=== PATIENT | female | born 1950 | race Caucasian/White ===

== ENCOUNTER 2019-06-12 14:40 | Emergency (ER) | payer MEDICARE, MEDICAID ==
[~2019-06-12] VITALS: Ht 170.2 cm; Wt 118.2 kg
[2019-06-12 15:08] VITALS: BP 157/99
[2019-06-12] MEDS ORDERED: PANT40TA4 PO (16:56)
[2019-06-12] MEDS ORDERED: LEVO112T5 PO ×2 (16:56→17:17)
[2019-06-12] MEDS ORDERED: ALBUTEROL HFA INH (16:56)
[2019-06-12] MEDS ORDERED: LOSA1TAB36 PO ×2 (16:56→17:17)
[2019-06-12] MEDS ORDERED: BUDE10.2 INH ×2 (16:56→17:17)
[2019-06-12] MEDS ORDERED: MONT10TA24 PO (16:56)
[2019-06-12] MEDS ORDERED: MONT10TA21 PO (17:17)
[2019-06-12] MEDS ORDERED: ALBU8HFA PO (17:17)
[2019-06-12] MEDS ORDERED: PANT-47 PO (17:17)
== END 2019-06-12 17:28 | disposition home or self-care (01) ==
LOC: ER 14:41
DX: I10 Essential (primary) hypertension (principal); J45.909 Unspecified asthma, uncomplicated; E03.9 Hypothyroidism, unspecified; Z76.0 Encounter for issue of repeat prescription; Z90.49 Acquired absence of other specified parts of digestive tract; Z88.5 Allergy status to narcotic agent; Z79.899 Other long term (current) drug therapy
CPT/HCPCS: 99283

== ENCOUNTER 2024-04-23 13:31 | Emergency (ER) | payer MEDICARE, MEDICAID ==
[~2024-04-23] VITALS: Ht 170.2 cm; Wt 128.9 kg
[~2024-04-23 13:31] MED LIST: ALBUTEROL HFA INH; BUDE10.2 INH; LEVO112T5 PO; LOSA1TAB36 PO; MONT-40 PO; MONT-47 PO; PANT-47 PO; PANT40TA54 PO
[2024-04-23] MEDS ORDERED: ATOR40TA72 PO (13:40)
[2024-04-23] MEDS ORDERED: POTA-366 PO (13:40)
[2024-04-23] MEDS ORDERED: LOSA1TAB39 PO (13:40)
[2024-04-23] MEDS ORDERED: AMLO5TAB16 PO (13:40)
[2024-04-23 14:06] LABS: BASOPHILS # (AUTO) 0.1 X10'3 (0-0.2); BASOPHILS % (AUTO) 0.4 % (0-1); EOSINOPHILS # (AUTO) 0.1 X10'3 (0-0.9); EOSINOPHILS % (AUTO) 0.6 % (0-6); HEMATOCRIT 38.8 % (35.0-45.0); HEMOGLOBIN 12.8 g/dl (12.0-16.0); LYMPHOCYTES # (AUTO) 1.1 X10'3 (1.1-4.8); LYMPHOCYTES % (AUTO) 9.7 % (21-51); MEAN CORPUSCULAR HEMOGLOBIN 29.8 PG (27.0-31.0); MEAN CORPUSCULAR HGB CONC 33.1 g/dL (33.0-36.5); MEAN CORPUSCULAR VOLUME 90.2 FL (78-98); MEAN PLATELET VOLUME 9.1 FL (7.4-10.4); NEUTROPHILS # (AUTO) 9.3 X10'3 (1.8-7.7); NEUTROPHILS % (AUTO) 80.3 % (42-75); PLATELET COUNT 214 X10'3 (140-440); RED BLOOD COUNT 4.31 X10'6 (4.20-5.60); RED CELL DISTRIBUTION WIDTH 15.7 % (11.5-14.5); WHITE BLOOD COUNT 11.6 X10'3 (4.5-11.0)
[2024-04-23 14:13] LABS: ALBUMIN 3.7 G/DL (3.4-5.0); ANION GAP 8 (8-16); BLOOD UREA NITROGEN 11 MG/DL (7-18); BUN/CREATININE RATIO 13.6 (10.0-20.0); CALCIUM 9.4 MG/DL (8.5-10.1); CHLORIDE 97 MMOL/L (99-107); CREATININE 0.81 MG/DL (0.40-0.90); GLUCOSE 133 MG/DL (70-104); POTASSIUM 3.1 MMOL/L (3.5-5.1); PRO BRAIN NATRIURETIC PEPTIDE 934 PG/ML (0-125); SODIUM 136 MMOL/L (135-145); TOTAL CARBON DIOXIDE 30.8 MMOL/L (24-32); eCRCL 62 ML/MIN; eGFR 70 ML/MIN
[2024-04-23] MEDS ORDERED: normal saline 1000ml 1,000 ML IV ONE (15:50)
[2024-04-23 16:47] LABS: D-DIMER 0.92 MG/L FEU (0-0.50)
[2024-04-23] MEDS ORDERED: iohexol 350MG/ML 100ml bottle IV ONE (17:47)
[2024-04-23 18:51] VITALS: BP 170/82; PULSE 81; RESP 17; TEMP 98.3; O2SAT 94
[2024-04-23] MEDS: POTASSIUM BICARB 20meq eff tab 20 MEQ TABLET.EFF PO ONE (19:56)
[2024-04-23] MEDS ORDERED: POTASSIUM BICARBONATE/CIT AC 10 MEQ TABLET.EFF PO ONE (20:05)
[2024-04-23] MEDS: POTASSIUM CHLORIDE 20 MEQ/15 ML oral solution PO ONE (20:06)
== END 2024-04-23 20:23 | disposition left against medical advice (07) ==
LOC: ER 13:32
DX: M25.512 Pain in left shoulder (principal); I10 Essential (primary) hypertension; J45.909 Unspecified asthma, uncomplicated; Z90.49 Acquired absence of other specified parts of digestive tract; Z79.899 Other long term (current) drug therapy; Z79.2 Long term (current) use of antibiotics; Z88.5 Allergy status to narcotic agent
CPT/HCPCS: 36415; 71045; 71275; 80048; 83880; 84484; 85025; 85379; 93005; 99285; A4565; J3490; Q9967

== ENCOUNTER 2024-12-30 13:06 | Inpatient (IN) | payer MEDICARE, MEDICAID ==
[~2024-12-30] VITALS: Ht 170.2 cm; Wt 119.5 kg
[~2024-12-30 13:06] MED LIST changes: +AMLO5TAB16 PO; +ATOR40TA72 PO; -LOSA1TAB36 PO; +LOSA1TAB39 PO; -MONT-47 PO; -PANT-47 PO; +POTA-366 PO
[2024-12-30] MEDS: albuterol 2.5 MG/3 ML nebule NEB ONE (13:45)
[2024-12-30] MEDS: ipratropium 0.5 MG/2.5ML nebule IH ONE (13:45)
[2024-12-30 14:17] LABS: BASOPHILS # (AUTO) 0.1 X10'3 (0-0.2); BASOPHILS % (AUTO) 0.4 % (0-1); EOSINOPHILS % (AUTO) 0 % (0-6); HEMATOCRIT 38.8 % (35.0-45.0); HEMOGLOBIN 12.6 g/dl (12.0-16.0); LYMPHOCYTES # (AUTO) 0.9 X10'3 (1.1-4.8); MEAN CORPUSCULAR HEMOGLOBIN 28.6 PG (27.0-31.0); MEAN CORPUSCULAR HGB CONC 32.4 g/dL (33.0-36.5); MEAN CORPUSCULAR VOLUME 88.2 FL (78-98); MEAN PLATELET VOLUME 8.3 FL (7.4-10.4); MONOCYTES # (AUTO) 1.2 X10'3 (0-0.9); MONOCYTES % (AUTO) 6.6 % (2-12); NEUTROPHILS # (AUTO) 16.1 X10'3 (1.8-7.7); PLATELET COUNT 196 X10'3 (140-440); RED CELL DISTRIBUTION WIDTH 16.4 % (11.5-14.5); WHITE BLOOD COUNT 18.3 X10'3 (4.5-11.0)
[2024-12-30] MEDS: CefTRIAXone 2gm/D5W 50ml BAG 50 ML IV STA (14:25)
[2024-12-30 14:31] LABS: ALANINE AMINOTRANSFERASE 32 U/L (12-78); ALBUMIN 3.3 G/DL (3.4-5.0); ALBUMIN/GLOBULIN RATIO 0.6 (1.1-1.5); ALKALINE PHOSPHATASE 171 IU/L (46-116); ANION GAP 7 (8-16); ASPARTATE AMINO TRANSFERASE 41 U/L (10-37); BILIRUBIN,TOTAL 1.2 MG/DL (0.1-1.0); BLOOD UREA NITROGEN 24 MG/DL (7-18); BUN/CREATININE RATIO 14.2 (10.0-20.0); CALCIUM 8.9 MG/DL (8.5-10.1); CHLORIDE 92 MMOL/L (99-107); CREATININE 1.69 MG/DL (0.40-0.90); GLUCOSE 142 MG/DL (70-104); POTASSIUM 3.2 MMOL/L (3.5-5.1); SODIUM 134 MMOL/L (135-145); TOTAL PROTEIN 8.9 G/DL (6.4-8.2); eCRCL 29 ML/MIN; eGFR 30 ML/MIN
[2024-12-30] MEDS: methylPREDNISolone sod succ 125mg/2ml vial IV ONE (14:32)
[2024-12-30 14:39] LABS: MAGNESIUM 1.5 MG/DL (1.5-2.4); PRO BRAIN NATRIURETIC PEPTIDE 5543 PG/ML (0-125)
[2024-12-30 14:47] VITALS: PULSE 78; RESP 17; RESP 18; O2SAT 92; O2SAT 96
[2024-12-30] MEDS: azithromycin/NS 500mg/250ml 250 ML IV ONE (15:08)
[2024-12-30] MEDS: normal saline 1000ml 1,000 ML IV ONE (15:10)
[2024-12-30] MEDS ORDERED: magnesium sulf-water 4G/100mL 100 ML IV PRN (15:55)
[2024-12-30] MEDS ORDERED: potassium Cl 20 mEq SR tablet PO PRN (15:55)
[2024-12-30] MEDS ORDERED: ondansetron/PF 4mg/2ml inj IV PRN (15:55)
[2024-12-30] MEDS ORDERED: magnesium sulf-water 2g/50mL 50 ML IV PRN (15:55)
[2024-12-30] MEDS ORDERED: potassium Cl 40MEQ/1/2NS 520ml 520 ML IV PRN (15:55)
[2024-12-30] MEDS ORDERED: magnesium Cl slow-release 64mg tablet PO PRN (15:55)
[2024-12-30] MEDS ORDERED: ipratropium/albuterol 3ml nebule NEB PRN (15:55)
[2024-12-30] MEDS ORDERED: magnesium hydroxide 30ml (MOM) UD suspension PO PRN (15:55)
[2024-12-30] MEDS ORDERED: acetaminophen 325mg tablet PO PRN ×2 (15:55)
[2024-12-30] MEDS ORDERED: HEPARIN DRIP-CARDIAC**PHARMACIST-TO-DOSE IV SCH (16:05)
[2024-12-30] MEDS: aspirin 325mg tablet PO ONE (16:10)
[2024-12-30 16:19] LABS: INR 1.3 INR; PROTHROMBIN TIME 13.7 SECONDS (9.0-12.0)
[2024-12-30] MEDS: PERFLUTREN PROTEIN-A MICROSPHR (Optison) 0.22 MG/ML 3ML VIAL IV ONE (16:30)
[2024-12-30] MEDS: heparin 10,000 units/1 ML INJ IV ONE (17:04)
[2024-12-30] MEDS: heparin 25,000 UNIT/250ml bag 250 ML IV PRN (17:05)
[2024-12-30] MEDS: atorvastatin 20mg tablet PO SCH (17:14)
[2024-12-30] MEDS: MESSAGE TO NURSING IV ONE (17:31)
[2024-12-30] MEDS: ipratropium/albuterol 3ml nebule NEB SCH (19:57)
[2024-12-30 19:59] VITALS: PULSE 80; RESP 19; O2SAT 91
[2024-12-30] MEDS: K and/or MAG REPLACEMENT MC SCH (20:00)
[2024-12-30] MEDS: docusate sod 100mg capsule PO SCH (20:00)
[2024-12-30 20:05] VITALS: PULSE 75; RESP 18
[2024-12-30] MEDS: potassium Cl 20 mEq SR tablet PO PRN (20:17)
[2024-12-30] MEDS: carVEDilol 3.125mg tablet PO SCH (20:17)
[2024-12-30] MEDS: methylPREDNISolone sod succ 125mg/2ml vial IV SCH (20:18)
[2024-12-31] VITALS (14 sets, daily range): BP systolic 107–142; BP diastolic 58–67; PULSE 59–82; RESP 12–76; TEMP 97.4–98.1; O2SAT 90–96
[2024-12-31] MEDS: MESSAGE TO NURSING IV ONE ×3 (01:43→20:05)
[2024-12-31 04:38] LABS: INR 1.3 INR; PROTHROMBIN TIME 13.4 SECONDS (9.0-12.0)
[2024-12-31] MEDS ORDERED: LORA10TA7 PO (04:59)
[2024-12-31] MEDS ORDERED: FLUT1BLS3 PO (04:59)
[2024-12-31] MEDS ORDERED: APIX5TAB3 PO (04:59)
[2024-12-31 06:55] LABS: BASOPHILS % (AUTO) 0.1 % (0-1); EOSINOPHILS % (AUTO) 0 % (0-6); HEMATOCRIT 35.7 % (35.0-45.0); HEMOGLOBIN 11.4 g/dl (12.0-16.0); LYMPHOCYTES # (AUTO) 0.7 X10'3 (1.1-4.8); MEAN CORPUSCULAR HEMOGLOBIN 28.1 PG (27.0-31.0); MEAN CORPUSCULAR VOLUME 87.8 FL (78-98); MONOCYTES # (AUTO) 0.5 X10'3 (0-0.9); MONOCYTES % (AUTO) 3.6 % (2-12); NEUTROPHILS # (AUTO) 12.9 X10'3 (1.8-7.7); NEUTROPHILS % (AUTO) 91.3 % (42-75); PLATELET COUNT 193 X10'3 (140-440); RED BLOOD COUNT 4.06 X10'6 (4.20-5.60); RED CELL DISTRIBUTION WIDTH 16.4 % (11.5-14.5); WHITE BLOOD COUNT 14.1 X10'3 (4.5-11.0)
[2024-12-31 07:04] LABS: ANION GAP 5 (8-16); BLOOD UREA NITROGEN 28 MG/DL (7-18); BUN/CREATININE RATIO 22.8 (10.0-20.0); CALCIUM 8.4 MG/DL (8.5-10.1); CHLORIDE 96 MMOL/L (99-107); CREATININE 1.23 MG/DL (0.40-0.90); GLUCOSE 158 MG/DL (70-104); MAGNESIUM 1.7 MG/DL (1.5-2.4); PHOSPHORUS 2.8 MG/DL (2.3-4.5); POTASSIUM 3.4 MMOL/L (3.5-5.1); SODIUM 133 MMOL/L (135-145); TOTAL CARBON DIOXIDE 32.1 MMOL/L (24-32); eCRCL 40 ML/MIN; eGFR 43 ML/MIN
[2024-12-31 07:05] LABS: ALANINE AMINOTRANSFERASE 22 U/L (12-78); ALBUMIN 2.5 G/DL (3.4-5.0); ALBUMIN/GLOBULIN RATIO 0.5 (1.1-1.5); ALKALINE PHOSPHATASE 127 IU/L (46-116); ASPARTATE AMINO TRANSFERASE 37 U/L (10-37); BILIRUBIN,TOTAL 0.7 MG/DL (0.1-1.0); CHOLESTEROL 78 MG/DL (0-200); HDL CHOLESTEROL 39 MG/DL (35-60); LDL CHOLESTEROL 30 MG/DL (50-100); TOTAL PROTEIN 7.5 G/DL (6.4-8.2); TRIGLYCERIDES 48 MG/DL (20-135)
[2024-12-31] MEDS: aspirin 81mg, enteric-coated 1 TAB TABLET.DR PO SCH (09:17)
[2024-12-31] MEDS: CefTRIAXone/D5W-Rocephin 1gm 50 ML IV SCH (09:19)
[2024-12-31] MEDS: azithromycin/NS 500mg/250ml 250 ML IV SCH (10:18)
[2024-12-31] MEDS: heparin 25,000 UNIT/250ml bag 250 ML IV PRN (11:55)
[2024-12-31] MEDS: heparin 10,000 units/1 ML INJ IV PRN (11:57)
[2025-01-01] VITALS (28 sets, daily range): BP systolic 106–162; BP diastolic 57–89; PULSE 48–98; RESP 11–22; TEMP 97.4–98.1; O2SAT 92–100
[2025-01-01 02:57] LABS: INR 1.1 INR; PROTHROMBIN TIME 11.9 SECONDS (9.0-12.0)
[2025-01-01] MEDS: MESSAGE TO NURSING IV ONE (03:05)
[2025-01-01 07:31] LABS: BASOPHILS % (AUTO) 0 % (0-1); EOSINOPHILS % (AUTO) 0 % (0-6); HEMATOCRIT 32.7 % (35.0-45.0); HEMOGLOBIN 10.6 g/dl (12.0-16.0); LYMPHOCYTES # (AUTO) 0.5 X10'3 (1.1-4.8); LYMPHOCYTES % (AUTO) 3.8 % (21-51); MEAN CORPUSCULAR HEMOGLOBIN 28.6 PG (27.0-31.0); MEAN CORPUSCULAR HGB CONC 32.5 g/dL (33.0-36.5); MEAN CORPUSCULAR VOLUME 87.9 FL (78-98); MEAN PLATELET VOLUME 8.9 FL (7.4-10.4); MONOCYTES # (AUTO) 0.5 X10'3 (0-0.9); MONOCYTES % (AUTO) 3.9 % (2-12); NEUTROPHILS # (AUTO) 12.8 X10'3 (1.8-7.7); NEUTROPHILS % (AUTO) 92.3 % (42-75); PLATELET COUNT 176 X10'3 (140-440); RED BLOOD COUNT 3.72 X10'6 (4.20-5.60); RED CELL DISTRIBUTION WIDTH 16.1 % (11.5-14.5); WHITE BLOOD COUNT 13.9 X10'3 (4.5-11.0)
[2025-01-01] MEDS: levoTHYROXINE 112mcg tablet PO SCH (07:58)
[2025-01-01 09:08] LABS: ALANINE AMINOTRANSFERASE 27 U/L (12-78); ALBUMIN 2.5 G/DL (3.4-5.0); ALBUMIN/GLOBULIN RATIO 0.5 (1.1-1.5); ALKALINE PHOSPHATASE 112 IU/L (46-116); ANION GAP 4 (8-16); ASPARTATE AMINO TRANSFERASE 45 U/L (10-37); BILIRUBIN,TOTAL 0.6 MG/DL (0.1-1.0); BLOOD UREA NITROGEN 31 MG/DL (7-18); CALCIUM 8.5 MG/DL (8.5-10.1); CHLORIDE 95 MMOL/L (99-107); GLUCOSE 208 MG/DL (70-104); MAGNESIUM 1.7 MG/DL (1.5-2.4); PHOSPHORUS 2.6 MG/DL (2.3-4.5); POTASSIUM 4.2 MMOL/L (3.5-5.1); SODIUM 132 MMOL/L (135-145); THYROID STIMULATING HORMONE 0.18 ulU/ml (0.34-4.50); TOTAL CARBON DIOXIDE 32.6 MMOL/L (24-32); TOTAL PROTEIN 7.1 G/DL (6.4-8.2); eCRCL 49 ML/MIN; eGFR 55 ML/MIN
[2025-01-01] MEDS ORDERED: LIDOcaine 1% (10mg/ml) 2ml vial ONE (10:50)
[2025-01-01] MEDS ORDERED: heparin 1,000unit/ml 10ml vial 10 ML ONE (10:50)
[2025-01-01] MEDS ORDERED: midazolam 1 mg/ML 2ml injection ONE ×2 (10:50→12:32)
[2025-01-01] MEDS ORDERED: fentaNYL/PF 50MCG/1 ML 2ML syringe ONE (10:50)
[2025-01-01] MEDS ORDERED: verapamil 2.5 mg/ml inj IV ONE (10:50)
[2025-01-01] MEDS ORDERED: iohexol 350 MG/ML 50ML vial IV ONE (10:50)
[2025-01-01] MEDS ORDERED: iohexol 350MG/ML 100ml bottle IV ONE ×3 (10:51→12:46)
[2025-01-01] MEDS ORDERED: nitroGLYCERIN 500mcg/5mL D5W 5 ML IV ONE (10:51)
[2025-01-01] MEDS: acetylcysteine 200 MG/ml 4ml vial PO SCH (11:03)
[2025-01-01] MEDS ORDERED: hydrocortisone sod succ/PF 100mg/2ml inj. ONE (11:05)
[2025-01-01] MEDS ORDERED: heparin 1,000 UNITS/NS 500ml 500 ML ONE (12:37)
[2025-01-01] MEDS ORDERED: clopidogrel 300mg tablet ONE (12:57)
[2025-01-01] MEDS ORDERED: aspirin 325mg tablet ONE (12:57)
[2025-01-01] MEDS ORDERED: non-formulary drug (Budesonide/Formoterol Fumarate (Symbicort 160-4.5 Mcg Inhaler) 2 PUFFS INH SCH (13:35)
[2025-01-01] MEDS: carvedilol 6.25mg tablet PO ONE (14:03)
[2025-01-01] MEDS: sodium bicarbonate 1meq/ml inj 150 ML in sodium chloride 0.45% 1,000 ML IV SCH (14:04)
[2025-01-01 14:13] LABS: ISTAT HGB ART 11.6 g/dl (12.0-16.0); ISTAT Hct ART 34 %PCV (35-45); ISTAT O2 SATURATION ARTERIAL 99 % (95-98); ISTAT SOURCE BLNK
[2025-01-01] MEDS: normal saline 1000ml 1,000 ML IV SCH (19:15)
[2025-01-01] MEDS ORDERED: non-formulary drug (Potassium Chloride 1 TAB) PO SCH (20:00)
[2025-01-01] MEDS: carvedilol 6.25mg tablet PO SCH (20:00)
[2025-01-01] MEDS: mag hydrox/Alum hydrox/simeth 30ml oral suspension PO PRN (21:50)
[2025-01-02 02:00] VITALS: PULSE 64; RESP 21; TEMP 98.6; O2SAT 95
[2025-01-02 07:00] VITALS: BP 134/80; PULSE 65; RESP 20; TEMP 97.8; O2SAT 93
[2025-01-02 07:14] LABS: ISTAT HGB MIX 11.6 g/dl (12.0-16.0); ISTAT Hct MIX 34 %PCV (35-45); ISTAT O2 SATURATION MIX VENOUS 72 % (60-80); ISTAT SOURCE BLNK
[2025-01-02 07:15] LABS: INR 1.1 INR; PROTHROMBIN TIME 11.4 SECONDS (9.0-12.0)
[2025-01-02 07:16] LABS: BASOPHILS % (AUTO) 0 % (0-1); EOSINOPHILS % (AUTO) 0 % (0-6); HEMATOCRIT 32.1 % (35.0-45.0); HEMOGLOBIN 10.4 g/dl (12.0-16.0); LYMPHOCYTES # (AUTO) 0.4 X10'3 (1.1-4.8); LYMPHOCYTES % (AUTO) 3.1 % (21-51); MEAN CORPUSCULAR HEMOGLOBIN 28.1 PG (27.0-31.0); MEAN CORPUSCULAR HGB CONC 32.4 g/dL (33.0-36.5); MEAN CORPUSCULAR VOLUME 86.7 FL (78-98); MEAN PLATELET VOLUME 8.6 FL (7.4-10.4); MONOCYTES # (AUTO) 0.6 X10'3 (0-0.9); MONOCYTES % (AUTO) 4.8 % (2-12); NEUTROPHILS # (AUTO) 11.9 X10'3 (1.8-7.7); NEUTROPHILS % (AUTO) 92.1 % (42-75); PLATELET COUNT 180 X10'3 (140-440); RED CELL DISTRIBUTION WIDTH 15.8 % (11.5-14.5); WHITE BLOOD COUNT 12.9 X10'3 (4.5-11.0)
[2025-01-02] MEDS: HYDROchlorothiazide 25mg tablet PO SCH (07:59)
[2025-01-02 08:00] VITALS: RESP 14; O2SAT 97
[2025-01-02] MEDS: clopidogrel 75mg tablet PO SCH (08:00)
[2025-01-02] MEDS: aspirin 81mg, enteric-coated 1 TAB TABLET.DR PO SCH (08:00)
[2025-01-02] MEDS ORDERED: non-formulary drug (Atorvastatin Calcium 1 TAB) PO SCH (08:00)
[2025-01-02] MEDS ORDERED: clopidogrel 75mg tablet PO SCH ×2 (08:00)
[2025-01-02] MEDS: apixaban 5mg tablet PO SCH (08:00)
[2025-01-02] MEDS: Fluticasone/Vilanterol (Breo Ellipta 200-25 Mcg INH) PO SCH (08:00)
[2025-01-02] MEDS: pantoprazole 40mg Tablet.DR PO SCH (08:01)
[2025-01-02] MEDS: levoTHYROXINE 112mcg tablet PO SCH (08:01)
[2025-01-02] MEDS: losartan 50mg tablet PO SCH (08:01)
[2025-01-02 08:02] LABS: ALANINE AMINOTRANSFERASE 29 U/L (12-78); ALBUMIN 2.5 G/DL (3.4-5.0); ALBUMIN/GLOBULIN RATIO 0.5 (1.1-1.5); ALKALINE PHOSPHATASE 113 IU/L (46-116); ANION GAP 3 (8-16); ASPARTATE AMINO TRANSFERASE 32 U/L (10-37); BILIRUBIN,TOTAL 0.5 MG/DL (0.1-1.0); BLOOD UREA NITROGEN 30 MG/DL (7-18); BUN/CREATININE RATIO 36.1 (10.0-20.0); CALCIUM 8.6 MG/DL (8.5-10.1); CHLORIDE 97 MMOL/L (99-107); CREATININE 0.83 MG/DL (0.40-0.90); GLUCOSE 160 MG/DL (70-104); PHOSPHORUS 2.3 MG/DL (2.3-4.5); POTASSIUM 4.6 MMOL/L (3.5-5.1); SODIUM 135 MMOL/L (135-145); TOTAL CARBON DIOXIDE 34.9 MMOL/L (24-32); TOTAL PROTEIN 7.2 G/DL (6.4-8.2); eCRCL 60 ML/MIN; eGFR 68 ML/MIN
[2025-01-02] MEDS: montelukast 10mg tablet PO SCH (08:02)
[2025-01-02] MEDS: loratadine 10mg tablet PO SCH (08:02)
[2025-01-02 09:17] LABS: FREE T4 (FREE THYROXINE) 1.36 NG/DL (0.73-1.40)
[2025-01-02] MEDS: pneumococcal 23-VAL P-sac vacc 25 mcg/0.5ml vial IMVAC ONE (10:00)
[2025-01-02 11:00] VITALS: BP 111/66; PULSE 59; RESP 23; TEMP 97.7; O2SAT 93
[2025-01-02] MEDS ORDERED: LACT1CAP26 PO (12:59)
[2025-01-02] MEDS ORDERED: PRED10TA23 PO (12:59)
[2025-01-02] MEDS ORDERED: CEFD300C3 PO (12:59)
[2025-01-02] MEDS ORDERED: ASPI-1071 PO (12:59)
[2025-01-02] MEDS ORDERED: CLOP75TA34 PO (12:59)
[2025-01-02] MEDS ORDERED: CARV3.1289 PO (13:19)
[2025-01-02 15:00] VITALS: BP 135/73; PULSE 58; RESP 22; TEMP 96.9; O2SAT 96
[2025-01-02] MEDS ORDERED: atorvastatin 20mg tablet PO SCH (21:00)
== END 2025-01-02 17:55 | disposition home health service (06) | DRG 853 ==
LOC: ER 13:06 → ED HOLD 16:00 → PCU 3S 12-31 17:15
PROVIDERS: ADMIT Family Medicine; ATTEND Family Medicine
PROC: 027034Z Dilation of Coronary Artery, One Artery with Drug-eluting Intraluminal Device, Percutaneous Approach (ICD-10-PCS; principal; 2025-01-01)
PROC: 4A023N8 Measurement of Cardiac Sampling and Pressure, Bilateral, Percutaneous Approach (ICD-10-PCS; 2025-01-01)
PROC: B2111ZZ Fluoroscopy of Multiple Coronary Arteries using Low Osmolar Contrast (ICD-10-PCS; 2025-01-01)
PROC: B2151ZZ Fluoroscopy of Left Heart using Low Osmolar Contrast (ICD-10-PCS; 2025-01-01)
DX: A41.9 Sepsis, unspecified organism (principal); I21.4 Non-ST elevation (NSTEMI) myocardial infarction; J18.9 Pneumonia, unspecified organism; J96.01 Acute respiratory failure with hypoxia; N17.0 Acute kidney failure with tubular necrosis; Z68.41 Body mass index [BMI] 40.0-44.9, adult; I12.9 Hypertensive chronic kidney disease with stage 1 through stage 4 chronic kidney disease, or unspecified chronic kidney disease; K21.9 Gastro-esophageal reflux disease without esophagitis; E66.9 Obesity, unspecified; E78.5 Hyperlipidemia, unspecified; Z20.822 Contact with and (suspected) exposure to COVID-19; E03.9 Hypothyroidism, unspecified; I48.0 Paroxysmal atrial fibrillation; J45.909 Unspecified asthma, uncomplicated; N18.9 Chronic kidney disease, unspecified; Z88.5 Allergy status to narcotic agent; Z79.899 Other long term (current) drug therapy; Z90.49 Acquired absence of other specified parts of digestive tract
CPT/HCPCS: 93306; 93460; 99285; C9600; 36415; 71045; 76937; 80053; 80061; 82803; 83036; 83605; 83735; 83880; 84100; 84145; 84439; 84443; 84484; 85014; 85025; 85347; 85610; 85730; 87040; 87081; 87502; 87503; 87811; 93005; 94640; 94760; 97161; 97530; 97535; 99152; 99153; A4615; A4620; A6258; C1725; C1751; C1769; C1874; C1894; G0378; J0456; J0696; J1644; J1720; J2003; J2250; J2919; J3010; J3490; J7030; Q9967

== ENCOUNTER 2025-01-03 14:30 | Inpatient (IN) | payer MEDICARE, MEDICAID ==
[~2025-01-03] VITALS: Ht 170.2 cm; Wt 124.1 kg
[~2025-01-03 14:30] MED LIST changes: +APIX5TAB3 PO; +ASPI-1071 PO; +CARV3.1289 PO; +CEFD300C3 PO; +CLOP75TA34 PO; +FLUT1BLS3 PO; +LACT1CAP26 PO; +LORA10TA7 PO; +PRED10TA23 PO
[2025-01-03 15:50] LABS: BASOPHILS % (AUTO) 0.1 % (0-1); EOSINOPHILS % (AUTO) 0 % (0-6); HEMATOCRIT 36.1 % (35.0-45.0); HEMOGLOBIN 11.8 g/dl (12.0-16.0); LYMPHOCYTES # (AUTO) 0.3 X10'3 (1.1-4.8); LYMPHOCYTES % (AUTO) 2.7 % (21-51); MEAN CORPUSCULAR HEMOGLOBIN 28.4 PG (27.0-31.0); MEAN CORPUSCULAR HGB CONC 32.6 g/dL (33.0-36.5); MEAN CORPUSCULAR VOLUME 86.9 FL (78-98); MEAN PLATELET VOLUME 8.2 FL (7.4-10.4); MONOCYTES # (AUTO) 0.8 X10'3 (0-0.9); MONOCYTES % (AUTO) 7.2 % (2-12); NEUTROPHILS # (AUTO) 10.2 X10'3 (1.8-7.7); PLATELET COUNT 185 X10'3 (140-440); RED BLOOD COUNT 4.15 X10'6 (4.20-5.60); RED CELL DISTRIBUTION WIDTH 16.1 % (11.5-14.5); WHITE BLOOD COUNT 11.4 X10'3 (4.5-11.0)
[2025-01-03 16:06] LABS: ALANINE AMINOTRANSFERASE 34 U/L (12-78); ALBUMIN 2.9 G/DL (3.4-5.0); ALBUMIN/GLOBULIN RATIO 0.6 (1.1-1.5); ALKALINE PHOSPHATASE 116 IU/L (46-116); ANION GAP -1 (8-16); ASPARTATE AMINO TRANSFERASE 25 U/L (10-37); BILIRUBIN,TOTAL 0.8 MG/DL (0.1-1.0); BLOOD UREA NITROGEN 24 MG/DL (7-18); BUN/CREATININE RATIO 35.8 (10.0-20.0); CALCIUM 9.5 MG/DL (8.5-10.1); CHLORIDE 98 MMOL/L (99-107); CREATININE 0.67 MG/DL (0.40-0.90); GLUCOSE 148 MG/DL (70-104); POTASSIUM 4.2 MMOL/L (3.5-5.1); SODIUM 139 MMOL/L (135-145); TOTAL PROTEIN 7.6 G/DL (6.4-8.2); eCRCL 74 ML/MIN; eGFR 87 ML/MIN
[2025-01-03 16:20] LABS: TOTAL CARBON DIOXIDE 41.9 MMOL/L (24-32)
[2025-01-03] MEDS: ipratropium/albuterol 3ml nebule NEB ONE (17:06)
[2025-01-03 17:08] VITALS: PULSE 64; RESP 20; O2SAT 95
[2025-01-03 17:13] VITALS: PULSE 67; RESP 18; O2SAT 98
[2025-01-03] MEDS: levoFLOXACIN-Levaquin 750MG/D5 150 ML IV STA (17:20)
[2025-01-03] MEDS: methylPREDNISolone sod succ 125mg/2ml vial IV ONE (17:20)
[2025-01-03 18:20] LABS: PRO BRAIN NATRIURETIC PEPTIDE 3039 PG/ML (0-125)
[2025-01-03] MEDS ORDERED: ondansetron/PF 4mg/2ml inj IV PRN (20:00)
[2025-01-03] MEDS ORDERED: morphine 2 MG/ML inj. syringe IV PRN ×2 (20:00)
[2025-01-03] MEDS: K and/or MAG REPLACEMENT MC SCH (20:00)
[2025-01-03] MEDS ORDERED: magnesium hydroxide 30ml (MOM) UD suspension PO PRN (20:00)
[2025-01-03] MEDS ORDERED: mag hydrox/Alum hydrox/simeth 30ml oral suspension PO PRN (20:00)
[2025-01-03] MEDS ORDERED: docusate sod 100mg capsule PO PRN (20:00)
[2025-01-03] MEDS ORDERED: magnesium Cl slow-release 64mg tablet PO PRN (20:00)
[2025-01-03] MEDS ORDERED: potassium Cl 20 mEq SR tablet PO PRN (20:00)
[2025-01-03] MEDS ORDERED: acetaminophen 325mg tablet PO PRN (20:00)
[2025-01-03 21:39] LABS: ABG BASE EXCESS 12.6 mmol/L (-2.0-3.0); ABG HCO3 39.3 mmol/L (21.0-28.0); ABG OXYGEN SATURATION 94.3 % (94.0-98.0); ABG PCO2 (T) 60.9 mmHg (32.0-45.0); ABG PH (T) 7.427 (7.350-7.450); ABG PO2 (T) 71.1 mmHg (83.0-108.0); ALLEN'S TEST POSITIVE; FCOHb 0.6 % (0.5-1.5); FHHb 5.6 % (0.0-5.0); FMetHb 0.3 % (0.0-1.5); FO2Hb 93.5 % (94.0-98.0); PATIENT TEMPERATURE 36.9; TOTAL HEMOGLOBIN 12.2 G/dl (12.0-16.0)
[2025-01-03 21:53] VITALS: PULSE 85; RESP 20; O2SAT 95
[2025-01-03] MEDS: guaiFENesin ER 600mg tablet PO SCH (22:18)
[2025-01-03] MEDS: furosemide 10 MG/1 ML 10ml inj IV ONE (22:19)
[2025-01-04] VITALS (19 sets, daily range): BP systolic 105–164; BP diastolic 73–91; PULSE 61–81; RESP 16–28; TEMP 96.4–98.7; O2SAT 88–98
[2025-01-04] MEDS: ipratropium/albuterol 3ml nebule NEB PRN ×2 (01:01→16:34)
[2025-01-04] MEDS ORDERED: VANCOMYCIN 1GM 200ML H20 (PEG) 200 ML IV SCH (03:00)
[2025-01-04] MEDS: vancomycin/NS 1 GM ADD-VANTAGE 250 ML IV SCH (03:31)
[2025-01-04 07:39] LABS: BASOPHILS % (AUTO) 0.2 % (0-1); EOSINOPHILS % (AUTO) 0 % (0-6); HEMATOCRIT 34.7 % (35.0-45.0); HEMOGLOBIN 11.5 g/dl (12.0-16.0); LYMPHOCYTES # (AUTO) 0.5 X10'3 (1.1-4.8); LYMPHOCYTES % (AUTO) 5.1 % (21-51); MEAN CORPUSCULAR HEMOGLOBIN 28.7 PG (27.0-31.0); MEAN CORPUSCULAR HGB CONC 33.2 g/dL (33.0-36.5); MEAN CORPUSCULAR VOLUME 86.4 FL (78-98); MEAN PLATELET VOLUME 8.2 FL (7.4-10.4); MONOCYTES # (AUTO) 0.8 X10'3 (0-0.9); MONOCYTES % (AUTO) 8.4 % (2-12); NEUTROPHILS # (AUTO) 8.1 X10'3 (1.8-7.7); NEUTROPHILS % (AUTO) 86.3 % (42-75); PLATELET COUNT 188 X10'3 (140-440); RED BLOOD COUNT 4.02 X10'6 (4.20-5.60); RED CELL DISTRIBUTION WIDTH 15.5 % (11.5-14.5); WHITE BLOOD COUNT 9.4 X10'3 (4.5-11.0)
[2025-01-04] MEDS: piperacillin/tazo 3.375gm/50ml 50 ML IV SCH (07:42)
[2025-01-04] MEDS: methylPREDNISolone sod succ/PF 40mg inj. IV SCH ×2 (07:43→15:36)
[2025-01-04] MEDS: furosemide 10 MG/1 ML 10ml inj IV SCH (07:43)
[2025-01-04] MEDS: amLODIPine 5mg tablet PO SCH (07:53)
[2025-01-04] MEDS: lactobacillus rhamnosus 10,000 MMU CELLS/CAPSULE PO SCH (07:53)
[2025-01-04] MEDS: pantoprazole 40mg Tablet.DR PO SCH (07:53)
[2025-01-04] MEDS: aspirin 81mg, enteric-coated 1 TAB TABLET.DR PO SCH (07:54)
[2025-01-04] MEDS: carVEDilol 3.125mg tablet PO SCH (07:54)
[2025-01-04] MEDS: atorvastatin 20mg tablet PO SCH (07:54)
[2025-01-04] MEDS: HYDROchlorothiazide 25mg tablet PO SCH (07:54)
[2025-01-04] MEDS: montelukast 10mg tablet PO SCH (07:54)
[2025-01-04] MEDS: apixaban 5mg tablet PO SCH (07:54)
[2025-01-04] MEDS: levoTHYROXINE 112mcg tablet PO SCH (07:54)
[2025-01-04] MEDS: losartan 50mg tablet PO SCH (07:55)
[2025-01-04] MEDS: clopidogrel 75mg tablet PO SCH (07:55)
[2025-01-04] MEDS ORDERED: levoFLOXACIN-Levaquin 750MG/D5 150 ML IV SCH (08:00)
[2025-01-04 08:08] LABS: ALANINE AMINOTRANSFERASE 30 U/L (12-78); ALBUMIN 2.6 G/DL (3.4-5.0); ALBUMIN/GLOBULIN RATIO 0.6 (1.1-1.5); ALKALINE PHOSPHATASE 103 IU/L (46-116); ASPARTATE AMINO TRANSFERASE 20 U/L (10-37); BILIRUBIN,TOTAL 1.1 MG/DL (0.1-1.0); BLOOD UREA NITROGEN 22 MG/DL (7-18); BUN/CREATININE RATIO 37.9 (10.0-20.0); CALCIUM 8.9 MG/DL (8.5-10.1); CHLORIDE 96 MMOL/L (99-107); CREATININE 0.58 MG/DL (0.40-0.90); GLUCOSE 168 MG/DL (70-104); MAGNESIUM 1.3 MG/DL (1.5-2.4); POTASSIUM 3.2 MMOL/L (3.5-5.1); SODIUM 141 MMOL/L (135-145); eCRCL 85 ML/MIN; eGFR > 90 ML/MIN
[2025-01-04 08:20] LABS: ANION GAP -1 (8-16)
[2025-01-04 08:31] LABS: TOTAL CARBON DIOXIDE 45.6 MMOL/L (24-32)
[2025-01-04] MEDS ORDERED: acetylcysteine 200 MG/ml 4ml vial INH ONE (09:10)
[2025-01-04 10:28] LABS: D-DIMER 0.47 MG/L FEU (0-0.50)
[2025-01-04] MEDS: furosemide 40mg/4ml inj IV ONE (11:07)
[2025-01-04] MEDS: acetaZOLAMIDE IV 500mg inj IV ONE (11:08)
[2025-01-04] MEDS: ipratropium/albuterol 3ml nebule NEB SCH (12:19)
[2025-01-04 12:53] LABS: ABG BASE EXCESS 24.6 mmol/L (-2.0-3.0); ABG HCO3 51.6 mmol/L (21.0-28.0); ABG OXYGEN SATURATION 95.6 % (94.0-98.0); ABG PH (T) 7.531 (7.350-7.450); ABG PO2 (T) 73.6 mmHg (83.0-108.0); ALLEN'S TEST POSITIVE; FCOHb 1.4 % (0.5-1.5); FHHb 4.3 % (0.0-5.0); FLOW 3 L/min; FMetHb 0.3 % (0.0-1.5); MODE NASAL CANNULA; TOTAL HEMOGLOBIN 13.4 G/dl (12.0-16.0)
[2025-01-04] MEDS: potassium Cl 40MEQ/1/2NS 520ml 520 ML IV PRN (13:00)
[2025-01-04] MEDS: magnesium sulf-water 2g/50mL 50 ML IV PRN (13:00)
[2025-01-04 13:29] LABS: BILIRUBIN,URINE NEGATIVE (Neg); CLARITY,URINE CLEAR (Clear); COLOR,URINE YELLOW (Yellow); GLUCOSE, URINE NEGATIVE (Neg); KETONES,URINE NEGATIVE (Neg); LEUKOCYTE ESTERASE ,URINE NEGATIVE (Neg); NITRITES, URINE NEGATIVE (Neg); OCCULT BLOOD,URINE SMALL (Neg); PROTEIN,URINE NEGATIVE (Neg); UROBILINOGEN,URINE 0.2 E.U/dL (0.2-1.0)
[2025-01-04 13:32] LABS: UA COLLECTION TYPE CLN CATCH MIDSTREAM
[2025-01-04 13:36] LABS: BACTERIA,URINE NONE SEEN /HPF (Neg); RBC,URINE 0-2 /HPF (0-2); SQUAMOUS EPITHELIAL CELL,UR FEW /LPF (FEW); WBC,URINE NONE SEEN /HPF (0-4)
[2025-01-04] MEDS: magnesium sulf-water 4G/100mL 100 ML IV PRN (15:33)
[2025-01-04] MEDS ORDERED: acetaZOLAMIDE 250mg tablet PO SCH (20:00)
[2025-01-05] VITALS (14 sets, daily range): BP systolic 120–130; BP diastolic 70–99; PULSE 54–76; RESP 18–24; TEMP 97.4–98; O2SAT 90–96
[2025-01-05] MEDS: VANCOMYCIN LEVEL IV ONE ×2 (02:30→14:51)
[2025-01-05 02:39] LABS: BASOPHILS % (AUTO) 0 % (0-1); EOSINOPHILS % (AUTO) 0 % (0-6); HEMATOCRIT 40.3 % (35.0-45.0); HEMOGLOBIN 13.4 g/dl (12.0-16.0); LYMPHOCYTES # (AUTO) 0.6 X10'3 (1.1-4.8); LYMPHOCYTES % (AUTO) 4.9 % (21-51); MEAN CORPUSCULAR HEMOGLOBIN 28.6 PG (27.0-31.0); MEAN CORPUSCULAR HGB CONC 33.3 g/dL (33.0-36.5); MEAN CORPUSCULAR VOLUME 85.8 FL (78-98); MEAN PLATELET VOLUME 8.2 FL (7.4-10.4); MONOCYTES # (AUTO) 0.9 X10'3 (0-0.9); MONOCYTES % (AUTO) 6.9 % (2-12); NEUTROPHILS # (AUTO) 10.8 X10'3 (1.8-7.7); NEUTROPHILS % (AUTO) 88.2 % (42-75); PLATELET COUNT 233 X10'3 (140-440); RED BLOOD COUNT 4.69 X10'6 (4.20-5.60); RED CELL DISTRIBUTION WIDTH 15.8 % (11.5-14.5); WHITE BLOOD COUNT 12.3 X10'3 (4.5-11.0)
[2025-01-05 02:54] LABS: ALANINE AMINOTRANSFERASE 34 U/L (12-78); ALBUMIN/GLOBULIN RATIO 0.6 (1.1-1.5); ALKALINE PHOSPHATASE 121 IU/L (46-116); ASPARTATE AMINO TRANSFERASE 21 U/L (10-37); BILIRUBIN,TOTAL 1.6 MG/DL (0.1-1.0); BLOOD UREA NITROGEN 28 MG/DL (7-18); BUN/CREATININE RATIO 30.4 (10.0-20.0); CALCIUM 9.3 MG/DL (8.5-10.1); CHLORIDE 92 MMOL/L (99-107); CREATININE 0.92 MG/DL (0.40-0.90); GLUCOSE 199 MG/DL (70-104); MAGNESIUM 2.4 MG/DL (1.5-2.4); SODIUM 139 MMOL/L (135-145); eCRCL 54 ML/MIN; eGFR 60 ML/MIN
[2025-01-05 02:59] LABS: ANION GAP -1 (8-16)
[2025-01-05 03:18] LABS: POTASSIUM 2.9 MMOL/L (3.5-5.1); TOTAL CARBON DIOXIDE 47.9 MMOL/L (24-32)
[2025-01-05 03:19] LABS: VANCOMYCIN,TROUGH 28.6 ug/mL (10.0-20.0)
[2025-01-05] MEDS: potassium Cl 20 mEq SR tablet PO PRN (04:02)
[2025-01-05] MEDS: nystatin 15 GM powder TP SCH (08:00)
[2025-01-05] MEDS ORDERED: furosemide 40mg/4ml inj IV SCH (08:24)
[2025-01-05] MEDS: acetaZOLAMIDE 250mg tablet PO SCH (08:33)
[2025-01-05] MEDS: vancomycin/NS 1 GM ADD-VANTAGE 250 ML IV SCH (16:22)
[2025-01-05] MEDS: furosemide 20 MG/2 ML vial IV SCH (20:31)
[2025-01-06] VITALS (13 sets, daily range): BP systolic 106–148; BP diastolic 51–89; PULSE 54–86; RESP 16–22; TEMP 96.7–97.8; O2SAT 91–99
[2025-01-06] MEDS: VANCOMYCIN LEVEL IV ONE (02:30)
[2025-01-06 02:48] LABS: BASOPHILS % (AUTO) 0.3 % (0-1); EOSINOPHILS % (AUTO) 0 % (0-6); HEMATOCRIT 40.4 % (35.0-45.0); HEMOGLOBIN 13.3 g/dl (12.0-16.0); LYMPHOCYTES # (AUTO) 0.5 X10'3 (1.1-4.8); LYMPHOCYTES % (AUTO) 3.5 % (21-51); MEAN CORPUSCULAR HEMOGLOBIN 28.1 PG (27.0-31.0); MEAN CORPUSCULAR HGB CONC 32.9 g/dL (33.0-36.5); MEAN CORPUSCULAR VOLUME 85.3 FL (78-98); MEAN PLATELET VOLUME 8.1 FL (7.4-10.4); MONOCYTES # (AUTO) 1.1 X10'3 (0-0.9); MONOCYTES % (AUTO) 7.5 % (2-12); NEUTROPHILS # (AUTO) 13.4 X10'3 (1.8-7.7); NEUTROPHILS % (AUTO) 88.7 % (42-75); PLATELET COUNT 247 X10'3 (140-440); RED BLOOD COUNT 4.74 X10'6 (4.20-5.60); RED CELL DISTRIBUTION WIDTH 15.9 % (11.5-14.5); WHITE BLOOD COUNT 15.2 X10'3 (4.5-11.0)
[2025-01-06 03:00] LABS: ALANINE AMINOTRANSFERASE 37 U/L (12-78); ALBUMIN 2.9 G/DL (3.4-5.0); ALBUMIN/GLOBULIN RATIO 0.6 (1.1-1.5); ALKALINE PHOSPHATASE 110 IU/L (46-116); ANION GAP -3 (8-16); ASPARTATE AMINO TRANSFERASE 24 U/L (10-37); BILIRUBIN,TOTAL 1.3 MG/DL (0.1-1.0); BLOOD UREA NITROGEN 42 MG/DL (7-18); BUN/CREATININE RATIO 48.8 (10.0-20.0); CALCIUM 9.3 MG/DL (8.5-10.1); CHLORIDE 95 MMOL/L (99-107); CREATININE 0.86 MG/DL (0.40-0.90); GLUCOSE 210 MG/DL (70-104); MAGNESIUM 1.8 MG/DL (1.5-2.4); POTASSIUM 3.9 MMOL/L (3.5-5.1); SODIUM 135 MMOL/L (135-145); TOTAL PROTEIN 7.5 G/DL (6.4-8.2); eCRCL 58 ML/MIN; eGFR 65 ML/MIN
[2025-01-06 03:26] LABS: TOTAL CARBON DIOXIDE 43.3 MMOL/L (24-32)
== END 2025-01-06 17:22 | DRG 280 ==
LOC: ER 14:30 → ED HOLD 20:05 → PCU 3S 01-04
PROVIDERS: ADMIT Internal Medicine; ATTEND Family Medicine
PROC: 05HD33Z Insertion of Infusion Device into Right Cephalic Vein, Percutaneous Approach (ICD-10-PCS; principal; 2025-01-04)
DX: I13.0 Hypertensive heart and chronic kidney disease with heart failure and stage 1 through stage 4 chronic kidney disease, or unspecified chronic kidney disease (principal); G93.41 Metabolic encephalopathy; I21.A1 Myocardial infarction type 2; I50.33 Acute on chronic diastolic (congestive) heart failure; J96.01 Acute respiratory failure with hypoxia; J96.02 Acute respiratory failure with hypercapnia; N17.9 Acute kidney failure, unspecified; Z68.41 Body mass index [BMI] 40.0-44.9, adult; Z20.822 Contact with and (suspected) exposure to COVID-19; I48.0 Paroxysmal atrial fibrillation; J45.909 Unspecified asthma, uncomplicated; E66.813 Obesity, class 3; E03.9 Hypothyroidism, unspecified; D72.828 Other elevated white blood cell count; R73.9 Hyperglycemia, unspecified; N18.2 Chronic kidney disease, stage 2 (mild); E86.0 Dehydration; D64.9 Anemia, unspecified; I25.10 Atherosclerotic heart disease of native coronary artery without angina pectoris; E78.5 Hyperlipidemia, unspecified; K21.9 Gastro-esophageal reflux disease without esophagitis; Z88.5 Allergy status to narcotic agent; Z79.01 Long term (current) use of anticoagulants; Z79.899 Other long term (current) drug therapy; Z90.49 Acquired absence of other specified parts of digestive tract; Z85.118 Personal history of other malignant neoplasm of bronchus and lung
CPT/HCPCS: 36410; 36415; 36600; 71045; 76937; 80053; 80202; 81001; 82803; 83605; 83735; 83880; 84132; 84145; 84484; 85018; 85025; 85379; 87081; 87502; 87503; 87811; 93005; 94640; 94664; 94668; 94760; 97116; 97161; 97530; 99285; A4615; C1751; G0378; J1120; J1940; J1956; J2543; J2919; J3370; J3475; J3480; J7040